=== PATIENT | male | born 1930 | race Caucasian/White ===

== ENCOUNTER 2019-12-20 10:53 | Outpatient (CLI) | payer MEDICARE, OTHER ==
[~2019-12-20] VITALS: Ht 177.8 cm; Wt 95.0 kg
[2019-12-20] VITALS (12 sets, daily range): BP systolic 121–138; BP diastolic 56–76; PULSE 68–82; TEMP 98–98.1
[~2019-12-20 10:53] MED LIST: ASPIR-LOW81 MG PO; ASPIRIN E.C. 8181 MG PO; CALCIUM1 CAP PO; CALTRATE-600 W600 MG PO; CARDI-OMEGA1000 MG PO; CARDURA4 MG PO; NORCO 325 MG-51 TAB PO; SYNTHROID0.05 MG/TA PO; VANCOCIN HCL1 GM IV; ZOCOR40 MG PO
[2019-12-20 12:00] LABS: ALBUMIN 3.2 gm/dL (3.5-5.0); BILIRUBIN,TOTAL 0.4 mg/dL (0.0-1.0); CALCIUM 8.4 mg/dL (8.4-10.2); CREATININE, serum 0.59 (0.66-1.25); POTASSIUM 3.9 mmol/L (3.4-5.0); TOTAL PROTEIN 5.9 gm/dL (6.4-8.2)
[2019-12-20 12:06] LABS: BASO % 0.2 % (0.0-2.0); EOS % 0.2 % (0-4.0); GRAN # 4.8 (1.4-6.5); GRAN % 85.9 % (42.2-75.2); LYMPH # 0.4 (1.2-3.4); LYMPH % 7.4 % (20.0-51.0); MEAN CELL VOLUME 72 fl (80.0-100.0); MEAN CORPUSCULAR HGB CONC 29 g/dl (33.0-37.0); MEAN PLATELET VOLUME 10.4 fl (7.4-10.4); MONO # 0.3 (0.1-0.6); MONO % 5.9 % (1.7-9.3); PLATELET COUNT 291 K/mm3 (130-400); RED BLOOD COUNT 2.74 M/mm3 (4.20-5.60); REDCELL DISTRIBUTION WIDTH-CV 15.3 % (11.5-14.5)
[2019-12-20 12:12] LABS: HEMATOCRIT 19.8 % (42.0-52.0); HEMOGLOBIN 5.7 g/dl (13.5-18.0); MEAN CORPUSCULAR HEMOGLOBIN 21 pg (27.0-31.0)
[2019-12-20 12:29] LABS: TSH w REFLEX 2.2 uIU/mL (0.465-4.680)
== END 2019-12-20 18:00 | disposition home or self-care (01) ==
LOC: COL.LAB 10:53 → COL.RAD 10:53 → COL.LAB 18:00
PROVIDERS: Family Medicine
DX: N28.89 Other specified disorders of kidney and ureter (principal); K31.89 Other diseases of stomach and duodenum
CPT/HCPCS: P9016; Q9967

== ENCOUNTER 2020-02-06 15:10 | Outpatient (RCR) | payer MEDICARE, OTHER ==
[2020-02-06] VITALS (7 sets, daily range): BP systolic 128–158; BP diastolic 72–92; PULSE 67–78; TEMP 97.5–97.7
[~2020-02-06] VITALS: Ht 177.8 cm; Wt 72.7 kg
== END 2020-02-06 20:25 | disposition home or self-care (01) ==
LOC: EUO 15:10
DX: C16.0 Malignant neoplasm of cardia (principal); C16.3 Malignant neoplasm of pyloric antrum; D64.9 Anemia, unspecified
CPT/HCPCS: J7050; P9016